=== PATIENT | male | born 1955 | race Caucasian/White ===

== ENCOUNTER 2021-10-02 10:40 | Emergency (ER) | payer MEDICARE, OTHER ==
[~2021-10-02] VITALS: Ht 180.3 cm; Wt 100.0 kg
[2021-10-02] MEDS ORDERED: VICTOZA18 MG/3 ML SC (12:02)
[2021-10-02] MEDS ORDERED: LANTUS SOL100 UNIT/M SC (12:02)
[2021-10-02] MEDS ORDERED: AMLODIPINE BESY10 MG PO (12:03)
[2021-10-02] MEDS ORDERED: ALBUTEROL108 MCG/AC PO (12:04)
[2021-10-02] MEDS ORDERED: LIPITOR40 M1 PO (12:05)
[2021-10-02] MEDS ORDERED: OMEPRAZOLE DR20 MG PO (12:05)
[2021-10-02] MEDS ORDERED: MAXZIDE-2537.5 MG/TA PO (12:05)
[2021-10-02] MEDS ORDERED: GLIPIZIDE ER10 M1 PO (12:05)
[2021-10-02] MEDS ORDERED: FLEXERIL5 M1 PO (15:22)
[2021-10-02] MEDS ORDERED: PROMETHAZINE HY25 M1 PO (15:22)
[2021-10-02] MEDS ORDERED: HYDROCO/APAP1 TA9 PO (15:22)
[2021-10-02 16:04] VITALS: BP 133/81
== END 2021-10-02 16:04 | disposition home or self-care (01) ==
LOC: ED 10:40
DX: M54.42 Lumbago with sciatica, left side (principal); M47.816 Spondylosis without myelopathy or radiculopathy, lumbar region; I10 Essential (primary) hypertension; E11.9 Type 2 diabetes mellitus without complications; E78.5 Hyperlipidemia, unspecified; Z79.84 Long term (current) use of oral hypoglycemic drugs; Z79.4 Long term (current) use of insulin